=== PATIENT | female | born 1995 | race Caucasian/White ===

== ENCOUNTER 2017-07-18 07:00 | Inpatient (IN) | payer OTHER ==
[~2017-07-18] VITALS: Ht 162.6 cm; Wt 78.0 kg
[2017-07-18] VITALS (60 sets, daily range): BP systolic 104–134; BP diastolic 56–84
[2017-07-18] MEDS ORDERED: D5 LR IV SOLUTION 1,000 ML IV ONE (07:36)
[2017-07-18] MEDS: D5 LR IV SOLUTION 1,000 ML IV SCH ×3 (07:36→21:08)
[2017-07-18] MEDS ORDERED: OXYTOCIN/NORMAL SALINE 500 ML IV SCH (07:50)
--- NOTE | 2017-07-18 08:01 | History & Physical ---
History and Physical Date Seen by Provider: July 18, 2017 Time Seen by Provider: 07:59 This patient is a 21-year-old 1 with a due date of 3017 putting her now at 40-2/7 weeks gestation. She was admitted for labor induction. She does state that she been started to have contractions last evening and occurring about every 6-8 minutes and was some varying intensity. Patient denies rupture membranes or bleeding. GBS culture was negative. She said no problems with his to date. Allergies are to shellfish which causes anaphylaxis Medications are vitamins Past medical history, past surgical history, obstetric history, family history, social histories are per the antepartum record HEENT exam is normal Neck is supple no lymphadenopathy no thyromegaly Abdomen is gravid soft nontender nondistended Extremities show no clubbing cyanosis. There is no Homans sign. Pelvic exam was performed in clinic showed a cervix that was thick and with just a dimple. The presenting part was the vertex at the -2 station was ballotable Assessment and plan 40-2/7 weeks gestation admitted now for induction of labor. Induction and cervical ripening mechanisms have been fully discussed with this patient plan is for induction with Pitocin versus use of a cervical ripening agent. Postdates admission for induction of labor 40-2/7 weeks' gestation Allergies and Home Medications Allergies Coded Allergies: shellfish derived (Verified Allergy, Severe, hives, 07/18/17) Patient Home Medication List Home Medication List Reviewed: Yes RITA MUNOZ MD July 18, 2017 8:01 am
--- NOTE | 2017-07-18 08:02 | OB Bishop Score ---
Gaytan Score 4 RITA MUNOZ MD July 18, 2017 8:02 am
[2017-07-18 08:37] LABS: BILIRUBIN,URINE NEGATIVE (NEGATIVE); CLARITY,URINE CLEAR; COLOR,URINE YELLOW; GLUCOSE, URINE (UA) NEGATIVE (NEGATIVE); KETONES,URINE NEGATIVE (NEGATIVE); LEUKOCYTE ESTERASE ,URINE NEGATIVE (NEGATIVE); NITRITE,URINE NEGATIVE (NEGATIVE); PH,URINE 8 (5-9); PROTEIN,URINE NEGATIVE (NEGATIVE); UROBILINOGEN,URINE NORMAL (NORMAL)
[2017-07-18 08:56] LABS: BACTERIA,URINE MODERATE /HPF; WBC,URINE 0-2 /HPF
[2017-07-18 08:59] LABS: BASOPHILS % (AUTO) 0 % (0-10); EOSINOPHILS # (AUTO) 0.1 10^3/uL (0.0-0.3); EOSINOPHILS % (AUTO) 1 % (0-10); HEMATOCRIT 36 % (35-52); HEMOGLOBIN 12.2 G/DL (11.5-16.0); LYMPHOCYTES # (AUTO) 2.4 X 10^3 (1.0-4.0); LYMPHOCYTES % (AUTO) 28 % (12-44); MEAN CORPUSCULAR HEMOGLOBIN 32 PG (25-34); MEAN CORPUSCULAR HGB CONC 34 G/DL (32-36); MEAN CORPUSCULAR VOLUME 92 FL (80-99); MEAN PLATELET VOLUME 11.2 FL (7.4-10.4); MONOCYTES # (AUTO) 0.7 X 10^3 (0.0-1.0); MONOCYTES % (AUTO) 8 % (0-12); NEUTROPHILS # (AUTO) 5.4 X 10^3 (1.8-7.8); NEUTROPHILS % (AUTO) 63 % (42-75); PLATELET COUNT 248 10^3/uL (130-400); RED BLOOD COUNT 3.87 10^6/uL (4.35-5.85); WHITE BLOOD COUNT 8.6 10^3/uL (4.3-11.0)
[2017-07-18] MEDS ORDERED: CATHETER FLUSH 10 ML SYR IV SCH (14:00)
[2017-07-18] MEDS ORDERED: SUFENTA 0.6MCG/ML BUPIVA 0.125 100 ML ONE (18:45)
[2017-07-18] MEDS ORDERED: LACTATED RINGERS 1,000 ML IV ONE ×2 (18:45→22:38)
[2017-07-18] MEDS ORDERED: fentaNYL INJECTION 100 MCG/2 ML AMP ONE (18:57)
[2017-07-18] MEDS ORDERED: BUPIVACAINE 0.25% 30 ML (SENSORCAINE) VIAL ONE (18:57)
[2017-07-18] MEDS ORDERED: LIDOCAINE PF 2% 5 ML (XYLOCAINE) VIAL ONE (18:57)
[2017-07-18] MEDS ORDERED: LACTATED RINGERS 1,000 ML IV SCH (19:37)
[2017-07-18] MEDS ORDERED: NALOXONE 0.4 MG/ML 1 ML (NARCAN) VIAL IV PRN (19:45)
[2017-07-18] MEDS ORDERED: EPIDURAL (SUFENTA 0.6MCG/ML BUPIVA 0.125%) 100 ML BAG EPI PRN (19:45)
[2017-07-18] MEDS ORDERED: diphenhydrAMINE 50 MG/ML INJ (BENADRYL) IV PRN (19:45)
[2017-07-18] MEDS ORDERED: ONDANSETRON 4 MG/2 ML (SDV) Z0FRAN IV PRN (19:45)
[2017-07-18] MEDS ORDERED: ACETAMINOPHEN 325 MG TABLET/CAPLET (TYLENOL) ONE (21:13)
[2017-07-18] MEDS ORDERED: ACETAMINOPHEN 500 MG TAB (TYLENOL) PO ONE (22:15)
[2017-07-18] MEDS ORDERED: EPIDURAL (SUFENTA 0.6MCG/ML BUPIVA 0.125%) 100 ML BAG EPI SCH (22:45)
[2017-07-19] VITALS (20 sets, daily range): BP systolic 101–150; BP diastolic 59–87
[2017-07-19] MEDS ORDERED: OXYTOCIN/NORMAL SALINE 500 ML IV SCH (03:18)
[2017-07-19] MEDS ORDERED: BENZOCAINE/MENTHOL (DERMOPLAST) 56 ML CAN TP PRN (03:30)
[2017-07-19] MEDS ORDERED: MEASLES,MUMPS,RUBELLA 1 EA INJ SQ ONE (03:30)
[2017-07-19] MEDS ORDERED: WITCH HAZEL(TUCKS) 40 EA JAR TOP PRN (03:30)
[2017-07-19] MEDS ORDERED: TETANUS,DIPTH,PERTUSS P/F (BOOSTRIX) 0.5 ML VIAL IM ONE (03:30)
[2017-07-19] MEDS ORDERED: oxyCODONE/APAP 5/325MG (PERCOCET 5) TABLET PO PRN (03:30)
[2017-07-19] MEDS ORDERED: WITCH HAZEL(TUCKS) 40 EA JAR ONE (04:09)
[2017-07-19] MEDS ORDERED: IBUPROFEN 800 MG (MOTRIN) TAB PO ONE ×4 (04:09→22:13)
[2017-07-19] MEDS: IBUPROFEN 800 MG (MOTRIN) TAB PO SCH ×4 (04:19→22:20)
--- NOTE | 2017-07-19 07:24 | OPERATIVE REPORT ---
DATE OF SERVICE: 07/19/2017 DELIVERY NOTE The patient delivered by term spontaneous vaginal delivery a viable male with Apgars of 8 and 9 at 1 and 5 minutes respectively. time of 0204. Weight is 7 pounds and 11 ounces. Cord blood pH was 7.22. The patient delivered over a midline episiotomy under epidural and local analgesia. The episiotomy was performed at the patient's request. When the perineum was stretched as far as possible, the hymenal ring was starting to tear and the patient could not push the baby any further. The episiotomy was performed. The delivery was accomplished fairly promptly. There was a single nuchal cord that was easily released. The infant was bulb suctioned on delivery of the head and again on completion of delivery. The umbilical cord was doubly clamped when pulseless. Father cut the cord, the baby was passed to mom's abdomen. The infant had spontaneous cry, moved all extremities, had excellent tone and reflexes and was quickly pinked with a vigorous cry. The placenta delivered spontaneously Real. It was normal with a 3-vessel cord. Cord blood had been obtained after delivery of the before delivery of the placenta. The cervix, vagina, rectum and perineum were examined and found intact, except for the midline episiotomy, which was repaired with a single suture of 3-0 Vicryl in the usual manner to good hemostasis and to good tissue reapproximation. The patient tolerated the delivery and the repair well and remained in the LDR for recovery. The baby remained with the mom. Job ID: [id number] DocumentID: [id number] Dictated Date: 07/19/2017 02:29:54 Range Mechanic Date: 07/19/2017 07:23:23 Dictated By: RITA MUNOZ MD [facility]
--- NOTE | 2017-07-19 08:00 | Progress Note-Standard ---
Standard Progress Note Progress Notes/Assess & Plan Date Seen by Provider: July 19, 2017 Time Seen by Provider: 07:59 Progress/Assessment & Plan This patient is without complaint. She is ambulating, voiding, tolerating oral intake well has good pain control. Vital Signs Date Time Temp Pulse Resp B/P (MAP) Pulse Ox O2 Delivery O2 Flow Rate FiO2 07/19/17 05:25 97.4 74 18 106/63 (77) 97 Room Air 07/19/17 03:30 98.2 86 18 112/65 (81) Room Air 07/19/17 03:15 97.9 82 18 113/67 (82) Room Air 07/19/17 03:00 98.1 80 18 127/60 (82) Room Air 07/19/17 02:45 98.7 81 18 150/60 (90) Room Air 07/19/17 02:30 98.9 96 18 113/68 (83) Room Air 07/19/17 02:20 103 18 107/59 (75) Room Air 07/19/17 02:04 120 18 117/71 (86) Room Air 07/19/17 02:00 93 18 121/81 (94) 98 Room Air 07/19/17 01:45 98.1 54 18 138/87 (104) 98 Room Air 07/19/17 01:30 77 18 110/68 (82) 98 Room Air 07/19/17 01:15 67 18 113/70 (84) 97 Room Air 07/19/17 01:00 72 18 115/69 (84) 97 Room Air 07/19/17 00:45 98.0 88 18 124/64 (84) 98 Room Air 07/19/17 00:30 76 18 115/79 (91) 98 Room Air 07/19/17 00:15 68 18 110/72 (85) 99 Room Air 07/19/17 00:00 71 18 115/81 (92) 99 Room Air 07/18/17 23:45 61 18 111/67 (82) 99 Room Air 07/18/17 23:30 62 18 115/71 (86) 98 Room Air 07/18/17 23:15 59 18 109/62 (78) 98 Room Air 07/18/17 23:00 97.6 77 18 113/76 (88) 99 Room Air 07/18/17 22:45 76 18 112/77 (89) 97 Room Air 07/18/17 22:30 75 18 109/69 (82) 98 Room Air 07/18/17 22:15 77 18 111/71 (84) 98 Room Air 07/18/17 22:00 77 18 111/71 (84) Room Air 07/18/17 21:45 73 18 110/70 (83) Room Air 07/18/17 21:30 71 18 121/73 (89) Room Air 07/18/17 21:15 97.7 94 18 104/73 (83) Room Air 07/18/17 21:00 73 18 121/75 (90) Room Air 07/18/17 20:45 76 18 119/79 (92) Room Air 07/18/17 20:30 77 18 124/73 (90) Room Air 07/18/17 20:15 82 18 119/66 (83) Room Air 07/18/17 20:10 100 18 134/63 (86) Room Air 07/18/17 20:05 103 18 122/78 (93) 98 Room Air 07/18/17 20:00 Room Air 07/18/17 19:45 78 18 114/65 (81) 98 Room Air 07/18/17 19:43 88 18 115/58 (77) 98 Room Air 07/18/17 19:39 104 18 120/62 (81) 99 Room Air 07/18/17 19:37 82 18 128/64 (85) 99 Room Air 07/18/17 19:33 88 18 116/67 (83) 99 Room Air 07/18/17 19:30 89 18 124/65 (84) 99 Room Air 07/18/17 19:27 84 18 119/62 (81) 99 Room Air 07/18/17 19:15 98.4 76 18 130/65 (86) 99 Room Air 07/18/17 19:00 18 Room Air 07/18/17 18:50 18 122/76 (91) Room Air 07/18/17 18:30 18 Room Air 07/18/17 18:00 18 Room Air 07/18/17 17:10 75 18 129/56 (80) Room Air 07/18/17 16:55 85 18 114/76 (89) Room Air 18 16:40 75 18 113/69 (84) Room Air 07/18/17 16:25 78 18 117/70 (86) Room Air 07/18/17 16:10 70 18 113/69 (84) Room Air 07/18/17 16:00 97.8 07/18/17 15:55 75 18 109/69 (82) Room Air 07/18/17 15:40 72 18 118/66 (83) Room Air 07/18/17 15:25 76 18 113/63 (80) Room Air 07/18/17 15:10 18 Room Air 07/18/17 14:55 78 18 120/77 (91) Room Air 07/18/17 14:40 72 18 120/77 (91) Room Air 07/18/17 14:25 75 18 129/75 (93) Room Air 07/18/17 14:10 72 18 132/78 (96) Room Air 07/18/17 13:55 68 18 120/79 (93) Room Air 07/18/17 13:40 77 18 120/79 (93) Room Air 07/18/17 13:25 75 18 122/81 (95) Room Air 07/18/17 13:10 69 18 114/74 (87) Room Air 07/18/17 12:55 18 Room Air 07/18/17 12:40 89 18 122/71 (88) Room Air 07/18/17 12:20 78 18 122/71 (88) Room Air 07/18/17 12:05 78 18 122/71 (88) Room Air 07/18/17 11:55 70 18 121/71 (88) Room Air 07/18/17 11:40 76 18 129/75 (93) Room Air 07/18/17 11:25 74 18 125/73 (90) Room Air 07/18/17 11:10 82 18 123/83 (96) Room Air 07/18/17 10:55 74 18 122/72 (89) Room Air 07/18/17 10:46 97.9 07/18/17 10:40 81 18 111/73 (86) Room Air 07/18/17 10:25 75 18 105/60 (75) Room Air 07/18/17 10:10 68 18 106/61 (76) Room Air 07/18/17 09:55 78 18 115/73 (87) Room Air 07/18/17 09:40 18 Room Air 07/18/17 09:25 75 18 116/74 (88) Room Air 07/18/17 09:10 73 18 111/78 (89) Room Air 07/18/17 08:55 73 18 110/77 (88) Room Air 07/18/17 08:40 72 18 117/78 (91) Room Air 07/18/17 08:22 70 18 121/79 (93) Room Air I & O 07/19/17 07:00 Intake Total 1000 ml Balance 1000 ml Vital signs are stable. Patient is afebrile. Fundus is firm below the umbilicus and nontender. Extreme show no clubbing cyanosis. There is no Homans sign. Assessment and plan from approximately 2 a.m. doing well. Plan is for routine convalescence care RITA MUNOZ MD July 19, 2017 8:00 am
[2017-07-19] MEDS ORDERED: IBUP-1780 PO (08:01)
[2017-07-19] MEDS ORDERED: OXYC-471 PO (08:01)
[2017-07-19] MEDS ORDERED: DOCU-143 PO (08:01)
--- NOTE | 2017-07-19 08:03 | Discharge Instructions ---
Discharge Instructions Discharge Medications New, Converted or Re-Newed RX: RX on Chart Patient Instructions Patient Instructions: As directed Return to The Hospital For: as directed Activity & Diet Discharge Diet: No Restrictions Activity as Tolerated: No Orders-Post D/C & Referrals Follow Up Appt: Call to make follow up appt. for patient in 4 weeks. Activity Per routine post vaginal delivery instructions. Diet as tolerated Patient may shower or tub bathe as desired. RITA MUNOZ MD July 19, 2017 8:03 am
[2017-07-19] MEDS ORDERED: KETOROLAC 30 MG/ML VIAL IV SCH (08:15)
[2017-07-19] MEDS: DOCUSATE SODIUM 100 MG (COLACE) CAP PO SCH ×2 (09:38→22:20)
--- NOTE | 2017-07-19 12:51 | Anesthesia-Regional Post-Op ---
Regional Patient Condition Mental Status: Alert, Oriented x3 Circulation: Same as Pre-Op Headache: Absent Sensation: Decreased Motor Block: Absent Post Op Complications Complications Pt reported to PEGGY Cheyenne that her L thigh is numb but that it was numb when and nothing new Follow Up Care/Instructions Patient Instructions None needed. Anesthesia/Patient Condition Patient is doing well, no complaints, stable vital signs, no apparent adverse anesthesia problems. No complications reported per nursing. D/C home per [facility] Criteria: Yes JOSE GARCIA CRNA July 19, 2017 12:51
[2017-07-19] MEDS: oxyCODONE/APAP 10/325MG (PERCOCET 10) TABLET PO PRN ×2 (18:04→22:25)
--- NOTE | 2017-07-19 20:44 | Diagnostic Imaging Report ---
EXAM: Bilateral lower extremity venous Doppler ultrasound. DATE: 07/19/2017. INDICATION: 21-year-old female, bilateral leg pain. Evaluation for DVT. Leg swelling. COMPARISON: None. FINDINGS: The left common femoral vein, left superficial femoral vein and left popliteal vein are all compressible with normal flow and response to augmentation. The visualized portions of the left deep femoral vein are patent. The left posterior tibial and peroneal veins are patent. The right common femoral vein, right superficial femoral vein and right popliteal vein are all compressible with flow and response to augmentation. The visualized portions of the right deep femoral vein are patent. The right posterior tibial and peroneal veins are patent. IMPRESSION: Negative for right or left lower extremity deep venous thrombosis. Dictated by: Dictated on workstation # [id number]
[2017-07-20 02:45] VITALS: BP 110/68
[2017-07-20] MEDS: IBUPROFEN 800 MG (MOTRIN) TAB PO SCH ×2 (04:17→10:29)
--- NOTE | 2017-07-20 07:53 | Progress Note-Standard ---
Standard Progress Note Progress Notes/Assess & Plan Date Seen by Provider: July 20, 2017 Time Seen by Provider: 07:52 Progress/Assessment & Plan This patient is without complaint. She is ambulating, voiding, tolerating oral intake well has good pain control. Vital Signs Date Time Temp Pulse Resp B/P (MAP) Pulse Ox O2 Delivery O2 Flow Rate FiO2 07/19/17 05:25 97.4 74 18 106/63 (77) 97 Room Air 07/19/17 03:30 98.2 86 18 112/65 (81) Room Air 07/19/17 03:15 97.9 82 18 113/67 (82) Room Air 07/19/17 03:00 98.1 80 18 127/60 (82) Room Air 07/19/17 02:45 98.7 81 18 150/60 (90) Room Air 07/19/17 02:30 98.9 96 18 113/68 (83) Room Air 07/19/17 02:20 103 18 107/59 (75) Room Air 07/19/17 02:04 120 18 117/71 (86) Room Air 07/19/17 02:00 93 18 121/81 (94) 98 Room Air 07/19/17 01:45 98.1 54 18 138/87 (104) 98 Room Air 07/19/17 01:30 77 18 110/68 (82) 98 Room Air 07/19/17 01:15 67 18 113/70 (84) 97 Room Air 07/19/17 01:00 72 18 115/69 (84) 97 Room Air 07/19/17 00:45 98.0 88 18 124/64 (84) 98 Room Air 07/19/17 00:30 76 18 115/79 (91) 98 Room Air 07/19/17 00:15 68 18 110/72 (85) 99 Room Air 07/19/17 00:00 71 18 115/81 (92) 99 Room Air 07/18/17 23:45 61 18 111/67 (82) 99 Room Air 07/18/17 23:30 62 18 115/71 (86) 98 Room Air 07/18/17 23:15 59 18 109/62 (78) 98 Room Air 07/18/17 23:00 97.6 77 18 113/76 (88) 99 Room Air 07/18/17 22:45 76 18 112/77 (89) 97 Room Air 07/18/17 22:30 75 18 109/69 (82) 98 Room Air 07/18/17 22:15 77 18 111/71 (84) 98 Room Air 07/18/17 22:00 77 18 111/71 (84) Room Air 07/18/17 21:45 73 18 110/70 (83) Room Air 07/18/17 21:30 71 18 121/73 (89) Room Air 07/18/17 21:15 97.7 94 18 104/73 (83) Room Air 07/18/17 21:00 73 18 121/75 (90) Room Air 07/18/17 20:45 76 18 119/79 (92) Room Air 07/18/17 20:30 77 18 124/73 (90) Room Air 07/18/17 20:15 82 18 119/66 (83) Room Air 07/18/17 20:10 100 18 134/63 (86) Room Air 07/18/17 20:05 103 18 122/78 (93) 98 Room Air 07/18/17 20:00 Room Air 07/18/17 19:45 78 18 114/65 (81) 98 Room Air 07/18/17 19:43 88 18 115/58 (77) 98 Room Air 07/18/17 19:39 104 18 120/62 (81) 99 Room Air 07/18/17 19:37 82 18 128/64 (85) 99 Room Air 07/18/17 19:33 88 18 116/67 (83) 99 Room Air 07/18/17 19:30 89 18 124/65 (84) 99 Room Air 07/18/17 19:27 84 18 119/62 (81) 99 Room Air 07/18/17 19:15 98.4 76 18 130/65 (86) 99 Room Air 07/18/17 19:00 18 Room Air 07/18/17 18:50 18 122/76 (91) Room Air 07/18/17 18:30 18 Room Air 07/18/17 18:00 18 Room Air 07/18/17 17:10 75 18 129/56 (80) Room Air 07/18/17 16:55 85 18 114/76 (89) Room Air 18 16:40 75 18 113/69 (84) Room Air 07/18/17 16:25 78 18 117/70 (86) Room Air 07/18/17 16:10 70 18 113/69 (84) Room Air 07/18/17 16:00 97.8 07/18/17 15:55 75 18 109/69 (82) Room Air 07/18/17 15:40 72 18 118/66 (83) Room Air 07/18/17 15:25 76 18 113/63 (80) Room Air 07/18/17 15:10 18 Room Air 07/18/17 14:55 78 18 120/77 (91) Room Air 07/18/17 14:40 72 18 120/77 (91) Room Air 07/18/17 14:25 75 18 129/75 (93) Room Air 07/18/17 14:10 72 18 132/78 (96) Room Air 07/18/17 13:55 68 18 120/79 (93) Room Air 07/18/17 13:40 77 18 120/79 (93) Room Air 07/18/17 13:25 75 18 122/81 (95) Room Air 07/18/17 13:10 69 18 114/74 (87) Room Air 07/18/17 12:55 18 Room Air 07/18/17 12:40 89 18 122/71 (88) Room Air 07/18/17 12:20 78 18 122/71 (88) Room Air 07/18/17 12:05 78 18 122/71 (88) Room Air 07/18/17 11:55 70 18 121/71 (88) Room Air 07/18/17 11:40 76 18 129/75 (93) Room Air 07/18/17 11:25 74 18 125/73 (90) Room Air 07/18/17 11:10 82 18 123/83 (96) Room Air 07/18/17 10:55 74 18 122/72 (89) Room Air 07/18/17 10:46 97.9 07/18/17 10:40 81 18 111/73 (86) Room Air 07/18/17 10:25 75 18 105/60 (75) Room Air 07/18/17 10:10 68 18 106/61 (76) Room Air 07/18/17 09:55 78 18 115/73 (87) Room Air 07/18/17 09:40 18 Room Air 07/18/17 09:25 75 18 116/74 (88) Room Air 07/18/17 09:10 73 18 111/78 (89) Room Air 07/18/17 08:55 73 18 110/77 (88) Room Air 07/18/17 08:40 72 18 117/78 (91) Room Air 07/18/17 08:22 70 18 121/79 (93) Room Air I & O 07/19/17 07:00 Intake Total 1000 ml Balance 1000 ml Vital signs are stable. Patient is afebrile. Fundus is firm below the umbilicus and nontender. Extreme show no clubbing cyanosis. There is no Homans sign. Assessment and plan from approximately 2 a.m. doing well. Plan is for routine convalescence care July 20, 2017 Patient without complaint except muscle soreness in her arms her legs particularly left leg. DVT was ruled out. Patient is ambulating, tolerating oral intake well has adequate pain control denies headache, denies nausea vomiting, denies shortness of breath. Patient feels ready for discharge home. Vital Signs Date Time Temp Pulse Resp B/P (MAP) Pulse Ox O2 Delivery O2 Flow Rate FiO2 07/20/17 02:45 96.4 92 18 110/68 (82) 98 Room Air 07/19/17 22:30 96.6 79 18 113/63 (80) 98 Room Air 07/19/17 15:00 96.5 84 18 101/67 (78) 99 Room Air 07/19/17 09:36 97.9 80 18 102/64 (77) Room Air I & O 07/20/17 07:00 Intake Total 500 ml Balance 500 ml Vital signs are stable. Patient is afebrile. Fundus is firm below the umbilicus and nontender. Streaming show no clubbing cyanosis. There is no Homans sign. Assessment and plan day number 2 status post term spontaneous vaginal delivery doing well. Plan is for discharge home with follow-up in clinic Final Diagnosis Term spontaneous vaginal delivery RITA MUNOZ MD July 20, 2017 7:53 am
[2017-07-20] MEDS ORDERED: IBUPROFEN 800 MG (MOTRIN) TAB PO SCH (08:15)
[2017-07-20 10:28] VITALS: BP 110/62
[2017-07-20] MEDS: DOCUSATE SODIUM 100 MG (COLACE) CAP PO SCH (10:29)
[2017-07-20] MEDS: oxyCODONE/APAP 10/325MG (PERCOCET 10) TABLET PO PRN ×2 (10:30→14:15)
[2017-07-20] MEDS ORDERED: TETANUS,DIPTH,PERTUSS P/F (BOOSTRIX) 0.5 ML VIAL IM ONE (12:45)
== END 2017-07-20 14:15 | disposition home or self-care (01) | DRG 774 ==
LOC: LDRP 07:00
PROVIDERS: ADMIT Obstetrics & Gynecology; ATTEND Obstetrics & Gynecology
PROC: 10E0XZZ Delivery of Products of Conception, External Approach (ICD-10-PCS; principal; 2017-07-19)
PROC: 0W8NXZZ Division of Female Perineum, External Approach (ICD-10-PCS; 2017-07-19)
DX: O48.0 Post-term pregnancy (principal); O69.81X0 Labor and delivery complicated by cord around neck, without compression, not applicable or unspecified; O90.89 Other complications of the puerperium, not elsewhere classified; M79.1 Myalgia; M79.605 Pain in left leg; Z3A.40 40 weeks gestation of pregnancy; Z37.0 Single live birth; Z23 Encounter for immunization
CPT/HCPCS: 36415; 81000; 85025; 86850; 86900; 86901; 88307; 90715; 93970

== ENCOUNTER → 2019-09-10 | Outpatient (CLI) | payer OTHER ==
[~2019-09-10] MED LIST: DOCU-143 PO; IBUP-1780 PO; OXYC-471 PO
== END ==
LOC: LABNPT 08:31
PROVIDERS: ATTEND Obstetrics & Gynecology
DX: O08.5 Metabolic disorders following an ectopic and molar pregnancy (principal)
CPT/HCPCS: 84702

== ENCOUNTER 2020-03-29 11:53 | Outpatient (CLI) | payer MEDICAID, OTHER ==
[~2020-03-29] VITALS: Ht 162.5 cm; Wt 77.0 kg
--- NOTE | 2020-03-29 11:50 | NUR ---
ANANTHSENA Buitrago presented to unit via from home, accompanied by self, with c/o Abdominal pain. SENA WADSWORTH weighed, gowned, voided, and to bed. EFHM and TOCO applied, VS taken. SENA WADSWORTH oriented to bed controls, call light, TV, heat, and A/C controls.
[2020-03-29 12:00] VITALS: BP 120/75
[2020-03-29] MEDS ORDERED: D5 LR IV SOLUTION 1,000 ML IV ONE (12:42)
[2020-03-29] MEDS ORDERED: D5 LR IV SOLUTION 1,000 ML IV SCH (12:45)
[2020-03-29 12:47] LABS: BILIRUBIN,URINE 1+ (NEGATIVE); CLARITY,URINE CLOUDY; COLOR,URINE YELLOW; GLUCOSE, URINE (UA) NEGATIVE (NEGATIVE); KETONES,URINE TRACE (NEGATIVE); LEUKOCYTE ESTERASE ,URINE TRACE (NEGATIVE); NITRITE,URINE NEGATIVE (NEGATIVE); PH,URINE 7.5 (5-9); PROTEIN,URINE 2+ (NEGATIVE)
[2020-03-29 13:01] LABS: BACTERIA,URINE LARGE /HPF; RBC,URINE RARE /HPF; SQUAMOUS EPITHELIAL CELL,UR 25-50 /HPF
[2020-03-29 13:34] LABS: BASOPHILS % (AUTO) 0 % (0-10); EOSINOPHILS % (AUTO) 0 % (0-10); HEMATOCRIT 31 % (35-52); HEMOGLOBIN 9.9 g/dL (11.5-16.0); LYMPHOCYTES # (AUTO) 1.8 10^3/uL (1.0-4.0); LYMPHOCYTES % (AUTO) 19 % (12-44); MEAN CORPUSCULAR HEMOGLOBIN 27 pg (25-34); MEAN CORPUSCULAR HGB CONC 32 g/dL (32-36); MEAN CORPUSCULAR VOLUME 83 fL (80-99); MEAN PLATELET VOLUME 10.5 fL (9.0-12.2); MONOCYTES # (AUTO) 0.3 10^3/uL (0.0-1.0); MONOCYTES % (AUTO) 3 % (0-12); NEUTROPHILS # (AUTO) 7.3 10^3/uL (1.8-7.8); NEUTROPHILS % (AUTO) 77 % (42-75); PLATELET COUNT 303 10^3/uL (130-400); WHITE BLOOD COUNT 9.4 10^3/uL (4.3-11.0)
[2020-03-29 13:50] VITALS: BP 109/65
[2020-03-29 13:52] LABS: ALANINE AMINOTRANSFERASE 12 U/L (0-55); ALBUMIN 3.3 GM/DL (3.2-4.5); ALKALINE PHOSPHATASE 203 U/L (40-136); BILIRUBIN,TOTAL 0.3 MG/DL (0.1-1.0); BUN/CREATININE RATIO 10; CALCIUM 8.6 MG/DL (8.5-10.1); CARBON DIOXIDE 19 MMOL/L (21-32); CHLORIDE 109 MMOL/L (98-107); CREATININE SERUM 0.67 MG/DL (0.60-1.30); GFR ESTIMATED > 60; GLUCOSE 119 MG/DL (70-105); POTASSIUM 3.5 MMOL/L (3.6-5.0); SODIUM 137 MMOL/L (135-145); TOTAL PROTEIN 6.8 GM/DL (6.4-8.2); URIC ACID 4.8 MG/DL (2.6-7.2)
[2020-03-29] MEDS ORDERED: PNV11TAB5 PO (15:53)
--- NOTE | 2020-03-29 16:05 | NUR ---
Discharge instructions given to pt. Pt verbalizes understanding. Pt informed to continue attending their visits, pt verbalizes understanding. IV removed. Pt to change prior to leaving unit.
--- NOTE | 2020-03-29 16:15 | NUR ---
Pt discharged from unit in stable condition via ambulatory.
--- NOTE | 2020-03-31 09:13 | Physician Query-Final Dx ---
DEEPTHI CHADWICK 03/31/20 0913: Final Diagnosis Give Final Diagnosis Please give Final Diagnosis RITA MUNOZ MD 03/31/20 1527: Final Diagnosis Give Final Diagnosis 37 weeks gestation with false labor DEEPTHI CHADWICK Mar 31, 2020 09:13 RITA MUNOZ MD Mar 31, 2020 15:27
== END 2020-03-29 16:15 | disposition home or self-care (01) ==
LOC: WSo 11:53 → LDRP 11:53 → WSo 16:15
PROVIDERS: ATTEND Obstetrics & Gynecology
DX: O26.899 Other specified pregnancy related conditions, unspecified trimester (principal); R10.9 Unspecified abdominal pain; Z3A.00 Weeks of gestation of pregnancy not specified
CPT/HCPCS: 36415; 80053; 81000; 82570; 84156; 84550; 85025; 87088

== ENCOUNTER 2020-04-02 09:19 | Inpatient (IN) | payer MEDICAID ==
[~2020-04-02] VITALS: Ht 162.6 cm; Wt 77.8 kg
[2020-04-02] VITALS (56 sets, daily range): BP systolic 102–163; BP diastolic 51–82
--- NOTE | 2020-04-02 09:15 | NUR ---
ANANTHSENA Buitrago admitted to room 3320-1, with an admitting diagnosis of induction of labor, on 04/02/[address] office via private vehicle ambulated to OB floor, accompanied by self.SENA WADSWORTH introduced to surroundings, call light, bed controls, phone, TV, temperature control, lights, meal times, smoking policy, visitor policy, side rail policy, bathrooms and showers. Patient Rights given to patient in the handbook. SENA WADSWORTH verbalizes understanding that [facility] is not responsible for the loss or damage to any personal effects or valuables that are kept in the patients posession during their hospitalization. The following Patient Care Plans were discussed with the paient: Discharge Planning, pain management, labor POC, and care. SENA WADSWORTH verbalizes understanding of Interdisciplinary Patient Education. Patient and/or family were informed about the Rapid Response Team and its purpose.
[~2020-04-02 09:19] MED LIST changes: +PNV11TAB5 PO
[2020-04-02] MEDS ORDERED: MINERAL OIL CONCENTRATE 99.9% 15 ML UDC TOP PRN (09:45)
[2020-04-02] MEDS ORDERED: OXYTOCIN PRE-MIX DRIP 500 ML IV SCH ×2 (09:45→21:15)
[2020-04-02] MEDS: D5 LR IV SOLUTION 1,000 ML IV SCH ×2 (10:05→18:00)
[2020-04-02 10:28] LABS: BASOPHILS % (AUTO) 0 % (0-10); EOSINOPHILS # (AUTO) 0.1 10^3/uL (0.0-0.3); EOSINOPHILS % (AUTO) 1 % (0-10); HEMATOCRIT 29 % (35-52); HEMOGLOBIN 8.9 g/dL (11.5-16.0); LYMPHOCYTES # (AUTO) 1.9 10^3/uL (1.0-4.0); LYMPHOCYTES % (AUTO) 25 % (12-44); MEAN CORPUSCULAR HEMOGLOBIN 26 pg (25-34); MEAN CORPUSCULAR HGB CONC 31 g/dL (32-36); MEAN CORPUSCULAR VOLUME 83 fL (80-99); MEAN PLATELET VOLUME 10.6 fL (9.0-12.2); MONOCYTES # (AUTO) 0.6 10^3/uL (0.0-1.0); MONOCYTES % (AUTO) 8 % (0-12); NEUTROPHILS # (AUTO) 4.9 10^3/uL (1.8-7.8); NEUTROPHILS % (AUTO) 65 % (42-75); PLATELET COUNT 316 10^3/uL (130-400); WHITE BLOOD COUNT 7.5 10^3/uL (4.3-11.0)
[2020-04-02 10:47] LABS: ALANINE AMINOTRANSFERASE 10 U/L (0-55); ALBUMIN 3.1 GM/DL (3.2-4.5); ALKALINE PHOSPHATASE 198 U/L (40-136); BILIRUBIN,TOTAL 0.3 MG/DL (0.1-1.0); BUN/CREATININE RATIO 10; CALCIUM 9.2 MG/DL (8.5-10.1); CARBON DIOXIDE 19 MMOL/L (21-32); CHLORIDE 110 MMOL/L (98-107); CREATININE SERUM 0.61 MG/DL (0.60-1.30); GFR ESTIMATED > 60; GLUCOSE 71 MG/DL (70-105); POTASSIUM 3.8 MMOL/L (3.6-5.0); SODIUM 138 MMOL/L (135-145)
--- NOTE | 2020-04-02 12:39 | History & Physical ---
History and Physical Date Seen by Provider: Apr 02, 2020 Time Seen by Provider: 12:35 This patient is a 24-year-old 2 para 1 white female seen in my clinic on this date. She is complaining of significant increase in pressure pain and contractions. Her REMY had decreased. And notably from prior exam although was still around 100 mm. Patient is noted significant decreased movement. She was found to be diya with regularity and was sent from my clinic to labor and delivery for management. She continues to contract. She denies rupture membranes or bleeding. She had a negative GBS culture after 35 weeks gestation. She is admitted now for labor Allergies are to shellfish Medications are vitamin Medical social and surgical history is all per the antepartum record HEENT exam is normal Neck is supple with no lymphadenopathy no thyromegaly Abdomen is gravid soft nontender nondistended Extremities show no clubbing cyanosis. There is no Homans' sign. Pelvic exam shows a cervix 1 to 2 cm dilated 50% effaced 0 station to -1 station vertex presentation very soft and flexible in the anterior Amniotomy is performed releasing a small amount of clear fluid monitor shows contractions now every 2-minute with a normal heart rate pattern/category 1 Assessment and plan term at 37+ weeks gestation admitted in early labor. We anticipate a vaginal delivery she has been augmented with Pitocin and would be allowed an epidural if she decides Patient is mildly anemic and we will address that after her delivery Term in early labor Allergies and Home Medications Allergies Coded Allergies: shellfish derived (Verified Allergy, Severe, hives, 07/18/17) Home Medications [id number]/FA/Omega3/Dha/Fish Oil 1 Each Tab.chew, 1 EACH PO DAILY, (Reported) Patient Home Medication List Home Medication List Reviewed: Yes RITA MUNOZ MD Apr 02, 2020 12:39
[2020-04-02] MEDS ORDERED: OXYC1TAB87 PO (12:44)
[2020-04-02] MEDS ORDERED: IBUP-1780 PO (12:44)
[2020-04-02] MEDS ORDERED: DOCU-143 PO (12:44)
--- NOTE | 2020-04-02 12:45 | Discharge Inst-Surgical ---
Discharge Inst-Surgical Depart Medication/Instructions New, Converted or Re-Newed RX: RX on Chart Consults/Follow Up Patient Instructions: As directed Orders & Referrals Follow Up Appt: Call to make follow up appt. for patient in 4 weeks. Activity Per routine post vaginal delivery instructions. Please call in RX to patient pharmacy. Diet as tolerated Patient may shower or tub bathe as desired. Activity Activity as Tolerated: No Diet Discharge Diet: No Restrictions RITA MUNOZ MD Apr 02, 2020 12:45
[2020-04-02] MEDS: CATHETER FLUSH 10 ML SYR IV SCH ×2 (14:00→22:00)
[2020-04-02] MEDS ORDERED: fentaNYL 2 mcg/ml BUPIVA 0.125 100 ML ONE (16:59)
[2020-04-02] MEDS ORDERED: fentaNYL INJECTION 100 MCG/2 ML AMP ONE (17:47)
[2020-04-02] MEDS ORDERED: BUPIVACAINE 0.25% 30 ML (SENSORCAINE) VIAL ONE (17:47)
[2020-04-02] MEDS ORDERED: fentaNYL 2 mcg/ml BUPIVA 0.125 100 ML IV SCH (18:00)
[2020-04-02] MEDS ORDERED: CATHETER FLUSH 10 ML SYR IV PRN (18:00)
[2020-04-02] MEDS ORDERED: NALOXONE 0.4 MG/ML 1 ML (NARCAN) VIAL IV PRN (18:00)
[2020-04-02] MEDS ORDERED: LACTATED RINGERS 1,000 ML IV ONE (18:00)
--- NOTE | 2020-04-02 19:40 | NUR ---
dr garcia notified of patient most recent cervical exams, pitocin infusion, current strip with decelerations. requested nurses to continue to increase pitocin infusion with current strip.
--- NOTE | 2020-04-02 19:44 | NUR ---
This RN discussing patient care, status, and monitoring strip with Dr. Bardales. Orders received to continue to up pitocin every 15min until cervical change.
[2020-04-02] MEDS ORDERED: LIDOCAINE/EPI 2% 1:200,00 (XYLOCAINE) 10 ML VIAL ONE (20:02)
[2020-04-02] MEDS ORDERED: KETOROLAC 30 MG/ML VIAL ONE (21:07)
[2020-04-02] MEDS ORDERED: BENZOCAINE/MENTHOL (DERMOPLAST) 60 ML CAN TP ONE (21:08)
[2020-04-02] MEDS ORDERED: DOCUSATE SODIUM 100 MG (COLACE) CAP PO ONE (21:08)
[2020-04-02] MEDS ORDERED: MEASLES,MUMPS,RUBELLA 1 EA INJ SC ONE (21:15)
[2020-04-02] MEDS ORDERED: ONDANSETRON 4 MG/2 ML (SDV) Z0FRAN IVP PRN (21:15)
[2020-04-02] MEDS ORDERED: TETANUS,DIPTH,PERTUSS P/F (BOOSTRIX) 0.5 ML VIAL IM ONE (21:15)
[2020-04-02] MEDS ORDERED: BENZOCAINE/MENTHOL (DERMOPLAST) 60 ML CAN TP PRN (21:15)
[2020-04-02] MEDS: DOCUSATE SODIUM 100 MG (COLACE) CAP PO SCH (21:22)
[2020-04-02] MEDS: KETOROLAC 30 MG/ML VIAL IVP SCH (21:22)
--- NOTE | 2020-04-02 23:35 | NUR ---
Patient ambulated to bathroom with standby assist, without difficulty. Positive void noted. Light rubra bleeding, no clots.
--- NOTE | 2020-04-02 23:45 | NUR ---
Patient transferred to PP room 311 via wheelchair, accompanied by staff, , and in crib. Patient oriented to room, call light, bed controls, thermostat, and dietary menu. PP folder given and explained, patient verbalized understanding.
--- NOTE | 2020-04-03 00:40 | OPERATIVE REPORT ---
DATE OF SERVICE: 04/02/2020 DELIVERY NOTE The patient delivered by term spontaneous vaginal delivery of a viable male infant with Apgars of 8 and 9 at 1 and 5 minutes respectively, weight of 7 pounds 12 ounces. time of 2035 and a cord blood pH that is pending. The infant delivered over a second-degree perineal laceration under epidural analgesia. The was bulb suctioned on delivery of the head and again on completion of delivery. Umbilical cord was doubly clamped, father cut the cord, the baby was passed to mom's abdomen. Cord bloods were obtained. The placenta delivered promptly spontaneously Real. It was a battledore placenta with a 3-vessel cord. The cervix, vagina, rectum, and perineum were examined and found intact, except for the second-degree perineal laceration that was repaired with a single suture of 3-0 Vicryl Rapide in the usual manner to good hemostasis and good reapproximation. The patient tolerated the delivery and the repair well and remained in the LDR for recovery. The baby remained with the mom. Sponge and needle counts were correct. Estimated blood loss was around 250 mL. Job ID: [id number] DocumentID: [id number] Dictated Date: 04/02/2020 21:01:43 Bindery Machine Feeder Offbearer Date: 04/03/2020 00:39:24 Dictated By: RITA MUNOZ MD
[2020-04-03 03:05] VITALS: BP 105/55
[2020-04-03] MEDS: KETOROLAC 30 MG/ML VIAL IVP SCH ×2 (03:12→08:47)
[2020-04-03] MEDS: IBUPROFEN 800 MG (MOTRIN) TAB PO SCH ×4 (05:50→21:17)
[2020-04-03] MEDS: CATHETER FLUSH 10 ML SYR IV SCH (05:52)
[2020-04-03] MEDS ORDERED: FERROUS SULF 325 MG (IRON) TAB PO SCH (07:00)
[2020-04-03] MEDS: DOCUSATE SODIUM 100 MG (COLACE) CAP PO SCH (08:39)
[2020-04-03 08:45] VITALS: BP 124/83
--- NOTE | 2020-04-03 10:38 | Progress Note ---
Standard Progress Note Progress Notes/Assess & Plan Date Seen by a Provider: Apr 03, 2020 Time Seen by a Provider: 10:36 Progress/Assessment & Plan This patient is without complaint. She is ambulating, voiding, tolerating oral intake well and has good pain control. Patient is requesting discharge home. Vital Signs 04/03/20 04/03/20 03:05 08:47 Temp 36.4 Pulse 71 Resp 16 B/P (MAP) 105/55 (72) Pulse Ox 98 O2 Delivery Room Air Vital signs are stable. Patient is afebrile. Fundus is firm below the umbilicus this and nontender. Extremities show no clubbing or cyanosis. There is no Homans' sign. Assessment and plan post day #1 status post term spontaneous vaginal delivery doing well. Plan is for discharge home with follow-up in clinic Final Diagnosis 37-week spontaneous vaginal delivery RITA MUNOZ MD Apr 03, 2020 10:37
[2020-04-03 12:00] VITALS: BP 108/63
[2020-04-03] MEDS: oxyCODONE/APAP 5/325MG (PERCOCET 5) TABLET PO PRN ×3 (12:07→21:17)
[2020-04-03 16:25] VITALS: BP 106/53
--- NOTE | 2020-04-03 16:39 | Anesthesia-Regional Post-Op ---
Regional Patient Condition Mental Status: Alert, Oriented x3 Circulation: Same as Pre-Op Headache: Absent Sensation: Full Recovery Motor Block: Absent Post Op Complications Complications None Follow Up Care/Instructions Patient Instructions None needed. Anesthesia/Patient Condition Patient is doing well, no complaints, stable vital signs, no apparent adverse anesthesia problems. RUBEN DOZIER DO Apr 03, 2020 16:39
[2020-04-03 20:00] VITALS: BP 109/61
--- NOTE | 2020-04-03 20:00 | NUR ---
Introduced self to patient, discussed POC. Pt verbalized understanding. VS taken, assessment performed. Pt denies any complaints. Discharge instructions reviewed. Pt denied any questions. Signature sheet signed, placed on chart.
== END 2020-04-03 21:32 | disposition home or self-care (01) | DRG 807 ==
LOC: LDRP 09:19
PROVIDERS: ADMIT Obstetrics & Gynecology; ATTEND Obstetrics & Gynecology
PROC: 0KQM0ZZ Repair Perineum Muscle, Open Approach (ICD-10-PCS; principal; 2020-04-02)
PROC: 10E0XZZ Delivery of Products of Conception, External Approach (ICD-10-PCS; 2020-04-02)
DX: O70.1 Second degree perineal laceration during delivery (principal); Z37.0 Single live birth; Z3A.37 37 weeks gestation of pregnancy
CPT/HCPCS: 36415; 80053; 85025; 86850; 86900; 86901; 87635

== ENCOUNTER 2021-04-17 19:29 | Inpatient (IN) | payer MEDICAID ==
[~2021-04-17] VITALS: Ht 160 cm; Wt 75.7 kg
[2021-04-17] VITALS (7 sets, daily range): BP systolic 111–140; BP diastolic 60–81
[~2021-04-17 19:29] MED LIST changes: -OXYC-471 PO; +OXYC1TAB11 PO; +OXYC1TAB87 PO
[2021-04-17 19:46] LABS: CLARITY,URINE CLEAR; COLOR,URINE YELLOW; GLUCOSE, URINE (UA) NEGATIVE (NEGATIVE); KETONES,URINE 3+ (NEGATIVE); LEUKOCYTE ESTERASE ,URINE NEGATIVE (NEGATIVE); NITRITE,URINE NEGATIVE (NEGATIVE); PROTEIN,URINE TRACE (NEGATIVE)
[2021-04-17 19:55] LABS: BACTERIA,URINE MODERATE /HPF; BILIRUBIN,URINE 1+ (NEGATIVE); RBC,URINE 0-2 /HPF; SQUAMOUS EPITHELIAL CELL,UR 0-2 /HPF
[2021-04-17] MEDS ORDERED: LACTATED RINGERS 1,000 ML IV SCH (20:15)
[2021-04-17 21:18] LABS: BASOPHILS % (AUTO) 0 % (0-10); EOSINOPHILS % (AUTO) 0 % (0-10); HEMATOCRIT 37 % (35-52); HEMOGLOBIN 11.5 g/dL (11.5-16.0); LYMPHOCYTES # (AUTO) 0.9 10^3/uL (1.0-4.0); LYMPHOCYTES % (AUTO) 8 % (12-44); MEAN CORPUSCULAR HEMOGLOBIN 26 pg (25-34); MEAN CORPUSCULAR HGB CONC 31 g/dL (32-36); MEAN CORPUSCULAR VOLUME 84 fL (80-99); MEAN PLATELET VOLUME 9.4 fL (9.0-12.2); MONOCYTES # (AUTO) 0.4 10^3/uL (0.0-1.0); MONOCYTES % (AUTO) 4 % (0-12); NEUTROPHILS % (AUTO) 87 % (42-75); PLATELET COUNT 377 10^3/uL (130-400); WHITE BLOOD COUNT 11.5 10^3/uL (4.3-11.0)
[2021-04-17] MEDS ORDERED: ACETAMINOPHEN 500 MG TAB (TYLENOL) ONE (21:33)
[2021-04-17] MEDS ORDERED: LACTATED RINGERS 1,000 ML IV ONE (21:33)
[2021-04-17] MEDS: LACTATED RINGERS 1,000 ML IV SCH (21:38)
[2021-04-17 21:40] LABS: LYMPHOCYTES % (MANUAL) 9 %; MONOCYTES % (MANUAL) 5 %; NEUTROPHILS % (MANUAL) 86 %
[2021-04-17 21:41] LABS: RBC MORPH NORMAL
[2021-04-17 21:43] LABS: CALCIUM 9.3 MG/DL (8.5-10.1); CREATININE SERUM 0.72 MG/DL (0.60-1.30); POTASSIUM 3.6 MMOL/L (3.6-5.0); TOTAL PROTEIN 8.7 GM/DL (6.4-8.2); URIC ACID 3.9 MG/DL (2.6-7.2)
[2021-04-17] MEDS ORDERED: ACETAMINOPHEN 500 MG TAB (TYLENOL) PO ONE (21:45)
[2021-04-17] MEDS ORDERED: TERBUTALINE INJ 1 MG/ML (BRETHINE) AMP ONE (21:55)
[2021-04-17] MEDS ORDERED: TERBUTALINE INJ 1 MG/ML (BRETHINE) AMP SC ONE (22:00)
[2021-04-17] MEDS ORDERED: MINERAL OIL CONCENTRATE 99.9% 15 ML UDC TOP PRN (23:45)
[2021-04-17] MEDS ORDERED: AMPICILLIN FOR IV USE 2,000 MG in NS (IVPB) 50 ML IV SCH (23:45)
[2021-04-18] VITALS (63 sets, daily range): BP systolic 70–131; BP diastolic 28–77
[2021-04-18] MEDS ORDERED: fentaNYL INJ 100 MCG/2 ML AMP IVP PRN
[2021-04-18] MEDS ORDERED: fentaNYL INJ 100 MCG/2 ML AMP ONE ×2 (00:01→02:48)
[2021-04-18] MEDS: D5 LR IV SOLUTION 1,000 ML IV SCH ×4 (00:15→19:37)
[2021-04-18] MEDS: LACTATED RINGERS 1,000 ML IV SCH ×5 (02:15→19:37)
[2021-04-18] MEDS ORDERED: fentaNYL 2 mcg/ml BUPIVA 0.125 100 ML ONE (02:21)
[2021-04-18] MEDS ORDERED: BUPIVACAINE 0.25% 30 ML (SENSORCAINE) VIAL ONE (02:48)
[2021-04-18] MEDS: EPIDURAL (fentaNYL 2 MCG/ML BUPIVA 0.125%)100 ML BAG EPI PRN ×2 (03:07→10:43)
[2021-04-18] MEDS ORDERED: ONDANSETRON 4 MG/2 ML (SDV) Z0FRAN ONE (03:19)
[2021-04-18] MEDS ORDERED: NALOXONE 0.4 MG/ML 1 ML (NARCAN) VIAL IV PRN ×3 (03:45→11:45)
[2021-04-18] MEDS ORDERED: METOCLOPRAMIDE INJ 10 MG/2 ML (REGLAN) IV PRN (03:45)
[2021-04-18] MEDS ORDERED: ONDANSETRON 4 MG/2 ML (SDV) Z0FRAN IV PRN (03:45)
[2021-04-18] MEDS ORDERED: diphenhydrAMINE 50 MG/ML INJ (BENADRYL) IV PRN (03:45)
[2021-04-18] MEDS: AMPICILLIN FOR IV USE 1,000 MG in NS (IVPB) 50 ML IV SCH ×2 (04:00→07:51)
[2021-04-18] MEDS ORDERED: CATHETER FLUSH 10 ML SYR IV SCH ×2 (06:00→14:00)
[2021-04-18] MEDS ORDERED: OXYTOCIN PRE-MIX DRIP 500 ML IV ONE (07:44)
--- NOTE | 2021-04-18 08:54 | History & Physical-OB ---
OB - Chief Complaint & HPI Date/Time Date of Admission: Date of Admission: Apr 17, 2021 at 23:45 Date seen by a Provider: Apr 18, 2021 Time Seen by a Provider: 08:45 Chief Complaint/History OB-Reason for Admission/Chief: Labor Hx : 3 Hx Para: 2 Expected Date of Delivery: Apr 11, 2022 Gestational Age in Weeks: 36 Gestational Age in Days: 4 Admission Nurse Assessment Rev: Yes History of Labs A pos Antibody neg RI RPR NR HBsAg NR HIV NR GC neg GBS neg Allergies and Home Medications Allergies Coded Allergies: shellfish derived (Verified Allergy, Severe, hives, 07/18/17) Patient Home Medication List Home Medication List Reviewed: Yes Docusate Sodium (Colace) 100 Mg Capsule, 100 MG PO BID Prescribed by: RITA HORNE on 04/02/20 1244 Ibuprofen (Ibuprofen) 800 Mg Tablet, 800 MG PO Q6H PRN for PAIN Prescribed by: RITA HORNE on 04/02/20 1244 Oxycodone HCl/Acetaminophen (Percocet 5-325 mg Tablet) 1 Each Tablet, 1 TAB PO Q4H Prescribed by: RITA HORNE on 04/02/20 1244 Icw556/FA/Omega3/Dha/Fish Oil ( Gummies) 1 Each Tab.chew, 1 EACH PO DAILY, (Reported) Entered as Reported by: KERON PERRY on 03/29/20 1553 OB - History Hx of Present Care: Yes Ultrasounds: Normal mid trimester US Obstetrical Complications: None Medical Complications: None Obstetrical History Hx : 3 Hx Para: 2 Hx Total # of Abortions (Spona: 0 Patient Past Medical History n/a Social History/Family History Alcohol Use: Denies Use Recreational Drug Use: No 2nd Hand Smoke Exposure: No Immunizations Influenza Vaccine Up-to-Date: No; Not Current Hepatitis A: Yes Hepatitis B: Yes OB - Admission Exam Physical Exam Vitals: Vital Signs 04/18/21 04/18/21 03:00 07:00 Temp 36.5 Pulse 74 Resp 20 B/P (MAP) 100/61 (74) Pulse Ox 100 O2 Delivery Room Air HEENT: NCAT Heart: Rhythm Normal Lungs: Clear Abdomen: Gravid Extremities: Normal Reflexes: Normal Cervical Dilatation: 7cm Effacement: 75% Station: -1 Membranes: Intact Heart Rate: 130's Accelerations: Accelerations Present Decelerations: No Decelerations Short Term Variability: Present Title Attorney Variability: Average (6-25) Contractions on Admission: < 5 Minutes Apart Intensity: Firm Labs Laboratory Tests Test 04/17/21 19:40 04/17/21 20:55 Range/Units Urine Color YELLOW Urine Clarity CLEAR Urine pH 6.0 5-9 Urine Specific [place] >=1.030 1.016-1.022 Urine Protein 22 H 6-12 MG/DL Urine Glucose (UA) NEGATIVE NEGATIVE Urine Ketones 3+ H NEGATIVE Urine Nitrite NEGATIVE NEGATIVE Urine Bilirubin 1+ H NEGATIVE Urine Urobilinogen 0.2 < = 1.0 MG/DL Urine Leukocyte Esterase NEGATIVE NEGATIVE Urine RBC (Auto) NEGATIVE NEGATIVE Urine RBC 0-2 /HPF Urine WBC 2-5 /HPF Urine Squamous Epithelial Cells 0-2 /HPF Urine Renal Epithelial Cells NONE /HPF Urine Crystals NONE /LPF Urine Bacteria MODERATE H /HPF Urine Casts NONE /LPF Urine Mucus MODERATE H /LPF Urine Culture Indicated YES Urine Creatinine 164 H 30-125 MG/DL Urine Protein/Creatinine Ratio 0.13 White Blood Count 11.5 H 4.3-11.0 10^3/uL Red Blood Count 4.48 3.80-5.11 10^6/uL Hemoglobin 11.5 11.5-16.0 g/dL Hematocrit 37 35-52 % Mean Corpuscular Volume 84 80-99 fL Mean Corpuscular Hemoglobin 26 25-34 pg Mean Corpuscular Hemoglobin Concent 31 L 32-36 g/dL Red Cell Distribution Width 14.0 10.0-14.5 % Platelet Count 377 130-400 10^3/uL Mean Platelet Volume 9.4 9.0-12.2 fL Immature Granulocyte % (Auto) 0 % Neutrophils (%) (Auto) 87 H 42-75 % Lymphocytes (%) (Auto) 8 L 12-44 % Monocytes (%) (Auto) 4 0-12 % Eosinophils (%) (Auto) 0 0-10 % Basophils (%) (Auto) 0 0-10 % Neutrophils # (Auto) 10.0 H 1.8-7.8 10^3/uL Lymphocytes # (Auto) 0.9 L 1.0-4.0 10^3/uL Monocytes # (Auto) 0.4 0.0-1.0 10^3/uL Eosinophils # (Auto) 0.0 0.0-0.3 10^3/uL Basophils # (Auto) 0.0 0.0-0.1 10^3/uL Immature Granulocyte # (Auto) 0.1 0.0-0.1 10^3/uL Neutrophils % (Manual) 86 % Lymphocytes % (Manual) 9 % Monocytes % (Manual) 5 % Blood Morphology Comment NORMAL Sodium Level 137 135-145 MMOL/L Potassium Level 3.6 3.6-5.0 MMOL/L Chloride Level 105 98-107 MMOL/L Carbon Dioxide Level 16 L 21-32 MMOL/L Anion Gap 16 H 5-14 MMOL/L Blood Urea Nitrogen 9 7-18 MG/DL Creatinine 0.72 0.60-1.30 MG/DL Estimat Glomerular Filtration Rate 118 BUN/Creatinine Ratio 13 Glucose Level 76 70-105 MG/DL Uric Acid 3.9 2.6-7.2 MG/DL Calcium Level 9.3 8.5-10.1 MG/DL Corrected Calcium 9.3 8.5-10.1 MG/DL Total Bilirubin 1.0 0.1-1.0 MG/DL Aspartate Amino Transf (AST/SGOT) 20 5-34 U/L Alanine Aminotransferase (ALT/SGPT) 12 0-55 U/L Alkaline Phosphatase 175 H 40-136 U/L Lactate Dehydrogenase 226 H 125-220 U/L Total Protein 8.7 H 6.4-8.2 GM/DL Albumin 4.0 3.2-4.5 GM/DL OB - Assessment/Plan/Diagnosis Assessment Assessment: active labor, labor Admission Dx 25 yo @ 36.4 labor GBS neg Admission Status: Inpatient Order (span 2 midnights) Reason for Inpatient Admission: labor at 36 weeks Plan Plan: Expectant Management ACOSTA VELAZCO DO Apr 18, 2021 08:54
[2021-04-18] MEDS: OXYTOCIN PRE-MIX DRIP 500 ML IV SCH ×2 (11:24→11:58)
--- NOTE | 2021-04-18 11:40 | OB Labor & Delivery Record ---
L&D History Date of Service Date of Service: Apr 18, 2021 History Expected Date of Delivery: Apr 11, 2022 Gestational Age in Weeks: 36 Hx : 3 Hx Para: 2 Complications Events: Routine care Operative Indications (Cesarea: N/A-Vaginal Delivery Intrapartal Events: None L&D Stage1 Stage One Onset of Labor - Date: Apr 18, 2021 Monitors and Tracing Monitor Mode: External Heart Rate: 135 Monitor Decelerations: None Station: -2 Detention Variability: Average (6-10) Short Term Variability: Present Presentation: Vertex Vital Signs VS - Last 72 Hours, by Label 04/17/21 04/17/21 04/17/21 04/17/21 19:46 19:46 19:50 20:05 Temp 36.2 36.2 36.2 Pulse 134 134 134 126 Resp 20 B/P (MAP) 140/81 (100) 123/73 (90) Pulse Ox 99 99 99 100 O2 Delivery Room Air Room Air Room Air Room Air 04/17/21 04/17/21 04/17/21 04/17/21 20:20 20:50 21:25 22:00 Temp 37.2 Pulse 114 97 95 101 Resp 20 20 20 20 B/P (MAP) 126/79 (95) 116/78 (91) 111/60 (77) 116/70 (85) Pulse Ox 100 O2 Delivery Room Air Room Air Room Air Room Air 04/18/21 04/18/21 04/18/21 04/18/21 00:00 01:00 02:00 02:55 Temp 37.1 36.5 36.5 Pulse 103 104 104 94 Resp 20 20 20 20 B/P (MAP) 118/56 (76) 118/60 (79) 100/56 (71) 122/57 (78) Pulse Ox 98 O2 Delivery Room Air Room Air Room Air Room Air 04/18/21 04/18/21 04/18/21 04/18/21 02:58 03:00 03:01 03:04 Temp 36.5 Pulse 101 86 101 98 Resp 20 20 20 20 B/P (MAP) 114/63 (80) 108/63 (78) 117/65 (82) 131/70 (90) Pulse Ox 100 100 100 O2 Delivery Room Air Room Air Room Air Room Air 04/18/21 04/18/21 04/18/21 04/18/21 03:08 03:10 03:13 03:15 Pulse 107 107 62 59 Resp 20 20 20 20 B/P (MAP) 114/59 (77) 89/47 (61) 70/28 (42) 89/53 (65) Pulse Ox 100 100 99 100 O2 Delivery Room Air Room Air Room Air Room Air 04/18/21 04/18/21 04/18/21 04/18/21 03:18 03:20 03:22 03:25 Pulse 64 68 67 77 Resp 20 20 20 20 B/P (MAP) 76/35 (49) 104/61 (75) 111/65 (80) 112/63 (79) Pulse Ox 100 99 99 99 O2 Delivery Room Air Room Air Room Air Room Air 04/18/21 04/18/21 04/18/21 04/18/21 03:28 03:30 03:31 03:34 Pulse 77 88 88 108 Resp 20 20 20 20 B/P (MAP) 120/62 (81) 115/57 (76) 115/57 (76) 114/56 (75) Pulse Ox 100 100 100 99 O2 Delivery Room Air Room Air Room Air Room Air 04/18/21 04/18/21 04/18/21 04/18/21 03:37 03:40 03:43 03:45 Pulse 117 107 97 97 Resp 20 20 20 20 B/P (MAP) 115/59 (77) 104/57 (73) 110/60 (77) 110/60 (77) Pulse Ox 98 98 98 99 O2 Delivery Room Air Room Air Room Air Room Air 04/18/21 04/18/21 04/18/21 04/18/21 03:46 03:49 03:53 03:55 Pulse 94 83 85 93 Resp 20 20 20 20 B/P (MAP) 115/64 (81) 111/66 (81) 112/68 (83) 110/70 (83) Pulse Ox 100 100 100 100 O2 Delivery Room Air Room Air Room Air Room Air 04/18/21 04/18/21 04/18/21 04/18/21 04:00 04:15 04:30 04:45 Pulse 93 86 88 95 Resp 20 20 20 20 B/P (MAP) 110/70 (83) 108/63 (78) 98/58 (71) 97/58 (71) Pulse Ox 99 99 100 100 O2 Delivery Room Air Room Air Room Air Room Air 04/18/21 04/18/21 04/18/21 04/18/21 05:00 05:15 05:30 05:45 Pulse 98 69 64 74 Resp 20 20 20 20 B/P (MAP) 103/66 (78) 96/51 (66) 97/57 (70) 99/56 (70) Pulse Ox 100 100 100 100 O2 Delivery Room Air Room Air Room Air Room Air 04/18/21 04/18/21 04/18/21 04/18/21 06:00 06:15 06:30 06:45 Pulse 77 103 75 69 Resp 20 20 20 20 B/P (MAP) 100/61 (74) 102/69 (80) 100/62 (75) 100/60 (73) Pulse Ox 100 99 99 99 O2 Delivery Room Air Room Air Room Air Room Air 04/18/21 04/18/21 04/18/21 04/18/21 07:00 07:15 07:30 07:45 Temp 35.9 Pulse 74 83 87 80 Resp 20 18 18 18 B/P (MAP) 100/61 (74) 107/63 (78) 107/57 (74) 111/57 (75) Pulse Ox 100 100 100 100 O2 Delivery Room Air Room Air Room Air Room Air 04/18/21 04/18/21 04/18/21 04/18/21 08:00 08:15 08:30 08:45 Pulse 87 115 81 102 Resp 18 18 18 18 B/P (MAP) 98/58 (71) 101/58 (72) 95/50 (65) Pulse Ox 100 100 100 100 O2 Delivery Room Air Room Air Room Air Room Air 04/18/21 04/18/21 04/18/21 04/18/21 09:00 09:15 09:30 09:45 Pulse 76 54 91 85 Resp 18 18 18 18 B/P (MAP) 97/56 (70) 103/69 (80) 117/53 (74) Pulse Ox 100 100 100 100 O2 Delivery Room Air Room Air Room Air Room Air Rupture of Membranes Spontaneous Ruture of Membrane: No Amniotic Membrane Rupture Time: 0834 Amniotic Membrane Fluid Desc.: Clear Vaginal Bleeding Description: Normal Show Induction/Anesthesia Epidural Cath Placement - Time: 0301 Progress/Notes Patient admitted for PTL last night by Dr. Hilario. Upon evaluation this AM was 6-7 cm AROM performed. She progressed to complete and +2 station with 2 mu pitocin augmentation. L&D Stage2 Stage Two Stage II Date: Apr 18, 2021 Monitors and Tracing Monitor Mode: External Heart Rate: 135 Monitor Decelerations: None Position: Right Occiput Anterior Presentation: Vertex Cord Descript/Complications Cord Vessel Description: 3 Vessels Complications nuchal cord reduced x 1 Delivery Type Infant Delivery Method: Spontaneous Vaginal Anterior Shoulder: Right Episiotomy/Perineal Laceration Laceraction(s)/Extensions: Yes Episiotomy Description: Vaginal Extension/lac, 1st degree Degree (describe repair) 1st degree vaginal laceration repaired using 3-0 rapide in usual fashion Condition of Delivery Notes Live female weight 6lbs 5oz APGARs pending. to CPAP and then blow by O2 . Condition of Condition of : Living Exam: No Observed Abnormalities Resuscitation Resuscitation: Oxygen Blowby L&D Stage3 Stage Three Stage III Date: Apr 18, 2021 Pictocin Pitocin Administration Comment: 30 mu wide open after delivery of placenta Placenta Delivery Placenta Delivery: Spontaneous Delivery Summary Summary Estimated blood loss (mL): 300 Attending at delivery: Acosta Velazco DO Condition of Delivery Examined: Cervix Examined, Uterus Explored Post Hemorrhage: No Condition of Mother stable Condition of (s) stable ACOSTA VELAZCO DO Apr 18, 2021 11:40
[2021-04-18] MEDS ORDERED: TETANUS,DIPTH,PERTUSS P/F (BOOSTRIX) 0.5 ML VIAL IM ONE (11:45)
[2021-04-18] MEDS ORDERED: DIBUCAINE 1% OINTMENT 30 GM TUBE TOP PRN (11:45)
[2021-04-18] MEDS ORDERED: MEASLES,MUMPS,RUBELLA 1 EA INJ SQ ONE (11:45)
[2021-04-18] MEDS ORDERED: BENZOCAINE/MENTHOL (DERMOPLAST) 56 ML CAN TP PRN (11:45)
[2021-04-18] MEDS ORDERED: HYDROcodone/APAP 5 MG/325 MG (LORTAB) TAB PO PRN (11:45)
[2021-04-18] MEDS ORDERED: WITCH HAZEL(TUCKS) 40 EA JAR TOP PRN (11:45)
[2021-04-18] MEDS: IBUPROFEN 600 MG (MOTRIN) TAB PO SCH ×3 (13:34→23:20)
[2021-04-18] MEDS ORDERED: oxyCODONE/APAP 5/325MG (PERCOCET 5) TABLET PO PRN (14:30)
[2021-04-18] MEDS: oxyCODONE/APAP 5/325MG (PERCOCET 5) TABLET PO PRN ×2 (15:30→21:38)
[2021-04-18] MEDS: DOCUSATE SODIUM 100 MG (COLACE) CAP PO SCH (20:02)
[2021-04-19 00:12] VITALS: BP 112/62
[2021-04-19] MEDS: oxyCODONE/APAP 5/325MG (PERCOCET 5) TABLET PO PRN ×2 (03:56→10:56)
[2021-04-19 04:00] VITALS: BP 106/58
[2021-04-19] MEDS: IBUPROFEN 600 MG (MOTRIN) TAB PO SCH ×2 (05:11→12:21)
[2021-04-19 06:11] LABS: BASOPHILS # (AUTO) 0.1 10^3/uL (0.0-0.1); BASOPHILS % (AUTO) 1 % (0-10); EOSINOPHILS # (AUTO) 0.2 10^3/uL (0.0-0.3); EOSINOPHILS % (AUTO) 2 % (0-10); HEMATOCRIT 26 % (35-52); HEMOGLOBIN 8.1 g/dL (11.5-16.0); LYMPHOCYTES # (AUTO) 2.7 10^3/uL (1.0-4.0); LYMPHOCYTES % (AUTO) 24 % (12-44); MEAN CORPUSCULAR HGB CONC 32 g/dL (32-36); MEAN CORPUSCULAR VOLUME 84 fL (80-99); MEAN PLATELET VOLUME 9.8 fL (9.0-12.2); MONOCYTES # (AUTO) 0.9 10^3/uL (0.0-1.0); MONOCYTES % (AUTO) 8 % (0-12); NEUTROPHILS # (AUTO) 7.2 10^3/uL (1.8-7.8); NEUTROPHILS % (AUTO) 65 % (42-75); PLATELET COUNT 288 10^3/uL (130-400)
[2021-04-19 06:12] LABS: MEAN CORPUSCULAR HEMOGLOBIN 26 pg (25-34)
[2021-04-19] MEDS ORDERED: PRENATAL VITAMIN 1 EA TAB PO SCH (07:00)
--- NOTE | 2021-04-19 07:29 | Postpartum Progress Note ---
SUGEY BRITO 04/19/21 0729: Note Note Day # 1 Subjective: Patient is without complaints. Ambulating, voiding. Patient has passed flatus, has not had a bowel movement. Tolerating a regular diet without nausea or vomiting. Normal lochia. Pain is well controlled with oral pain medications. Patient is without concerns. Objective: Vital signs stable, afebrile Physical Exam: General - Alert and oriented, no apparent distress Abdomen - Soft, mildly tender to palpation, non-distended, fundus firm at umbilicus Extremities - Mild bilateral lower extremity edema Assessment: G3 now P3 post- day # 1, status post normal spontaneous vaginal delivery. Recovering well, hemodynamically stable Plan: Routine care. Encourage breast feeding. Encourage ambulation. Ferrous sulfate supplementation. Plan for discharge today Vitals - Labs Vital Signs - I&O Vital Signs Date Time Temp Pulse Resp B/P (MAP) Pulse Ox O2 Delivery O2 Flow Rate FiO2 04/19/21 04:00 36.6 78 18 106/58 (74) 98 Room Air 04/19/21 00:12 36.8 82 20 112/62 (79) 99 Room Air 04/18/21 20:04 37.0 77 18 108/57 (74) 98 Room Air 04/18/21 17:00 36.9 75 18 97/53 (68) 99 Room Air 04/18/21 13:57 37.3 99 18 120/59 (79) 100 Room Air 04/18/21 13:25 90 18 117/71 (86) Room Air 04/18/21 13:10 96 18 124/77 (93) Room Air 04/18/21 12:55 81 18 103/57 (72) Room Air 04/18/21 12:40 88 18 107/58 (74) Room Air 04/18/21 12:25 103 18 124/60 (81) Room Air 04/18/21 12:10 97 18 112/53 (72) Room Air 04/18/21 11:00 18 Room Air 04/18/21 10:45 107 18 106/52 (70) Room Air 04/18/21 10:30 80 18 105/55 (72) Room Air 04/18/21 10:15 82 18 122/59 (80) 100 Room Air 04/18/21 10:00 91 18 111/60 (77) 100 Room Air 04/18/21 09:45 85 18 117/53 (74) 100 Room Air 04/18/21 09:30 91 18 100 Room Air 04/18/21 09:15 54 18 103/69 (80) 100 Room Air 04/18/21 09:00 76 18 97/56 (70) 100 Room Air 04/18/21 08:45 102 18 95/50 (65) 100 Room Air 04/18/21 08:30 81 18 101/58 (72) 100 Room Air 04/18/21 08:15 115 18 98/58 (71) 100 Room Air 04/18/21 08:00 87 18 100 Room Air 04/18/21 07:45 80 18 111/57 (75) 100 Room Air 04/18/21 07:30 35.9 87 18 107/57 (74) 100 Room Air I & O 04/19/21 07:00 Intake Total 2050 ml Balance 2050 ml Labs Laboratory Tests 04/19/21 06:01: White Blood Count 11.0, Red Blood Count 3.06L, Hemoglobin 8.1#L, Hematocrit 26L, Mean Corpuscular Volume 84, Mean Corpuscular Hemoglobin 26, Mean Corpuscular Hemoglobin Concent 32, Red Cell Distribution Width 14.2, Platelet Count 288, Mean Platelet Volume 9.8, Immature Granulocyte % (Auto) 1, Neutrophils (%) (Auto) 65, Lymphocytes (%) (Auto) 24, Monocytes (%) (Auto) 8, Eosinophils (%) (Auto) 2, Basophils (%) (Auto) 1, Neutrophils # (Auto) 7.2, Lymphocytes # (Auto) 2.7, Monocytes # (Auto) 0.9, Eosinophils # (Auto) 0.2, Basophils # (Auto) 0.1, Immature Granulocyte # (Auto) 0.1 KAYLIE COELHO [employer] 04/19/21 1003: Note Note Assessment in agreement w/medical student's findings SUGEY BRITO Apr 19, 2021 07:29 KAYLIE COELHO APRN Apr 19, 2021 10:03
[2021-04-19 07:50] VITALS: BP 98/55
[2021-04-19] MEDS ORDERED: FERROUS SULF 325 MG (IRON) TAB PO SCH (09:00)
[2021-04-19] MEDS: DOCUSATE SODIUM 100 MG (COLACE) CAP PO SCH (09:09)
[2021-04-19 12:15] VITALS: BP 107/55
--- NOTE | 2021-04-19 15:46 | Discharge Inst-Women's Service ---
Discharge Inst-Women's Serv Depart Medication/Instructions New, Converted or Re-Newed RX: Transmitted to Pharmacy Final Diagnosis PPD 1 NVD Problems Reviewed?: Yes Consults/Follow Up Additional Follow Up: Yes Orders/Referrals Dr. Velazco in 6 weeks Activity Activity: Activity as Tolerated Driving Instructions: No Driving for 1 Week NO SMOKING: NO SMOKING Nothing Inside Vagina: No Douching, No [place], No Tampons Diet Discharge Diet: No Restrictions Symptoms to Report to : Bleeding Excessive, Pain Increased, Fever Over 101 Degrees F, Vaginal Bleeding Increase, Questions/Concerns For Any Problems or Questions: Contact Your Physician ACOSTA VELAZCO DO Apr 19, 2021 3:46 pm
[2021-04-19] MEDS ORDERED: OXYC1TAB87 PO (15:47)
[2021-04-19] MEDS ORDERED: IBUP-844 PO (15:47)
[2021-04-19] MEDS ORDERED: DIBU30OI TOP (15:47)
[2021-04-19] MEDS ORDERED: BENZ78AE5 TP (15:47)
[2021-04-19] MEDS ORDERED: DOCU100C37 PO (15:47)
[2021-04-19 16:00] VITALS: BP 108/59
== END 2021-04-19 16:15 | disposition home or self-care (01) | DRG 807 ==
LOC: LDRP 19:29 → WSo 19:29 → LDRP 23:45
PROVIDERS: ADMIT Family Medicine; ATTEND Obstetrics & Gynecology
PROC: 10E0XZZ Delivery of Products of Conception, External Approach (ICD-10-PCS; principal; 2021-04-18)
PROC: 0HQ9XZZ Repair Perineum Skin, External Approach (ICD-10-PCS; 2021-04-18)
DX: O60.14X0 Preterm labor third trimester with preterm delivery third trimester, not applicable or unspecified (principal); Z37.0 Single live birth; O70.0 First degree perineal laceration during delivery; O69.81X0 Labor and delivery complicated by cord around neck, without compression, not applicable or unspecified; Z3A.36 36 weeks gestation of pregnancy; Z91.013 Allergy to seafood
CPT/HCPCS: 36415; 80053; 81000; 82570; 83615; 84156; 84550; 85007; 85025; 85027; 86850; 86900; 86901; 87088; 99212

== ENCOUNTER 2022-02-01 16:55 | Emergency (ER) | payer MEDICAID ==
[~2022-02-01] VITALS: Ht 162 cm; Wt 65.0 kg
[~2022-02-01 16:55] MED LIST changes: +BENZ78AE5 TP; +DIBU30OI TOP; +DOCU100C37 PO; +IBUP-844 PO
[2022-02-01 17:23] LABS: ALBUMIN 4.8 GM/DL (3.2-4.5); BASOPHILS # (AUTO) 0.1 10^3/uL (0.0-0.1); BASOPHILS % (AUTO) 1 % (0-10); CHLORIDE 101 MMOL/L (98-107); EOSINOPHILS # (AUTO) 0.2 10^3/uL (0.0-0.3); EOSINOPHILS % (AUTO) 3 % (0-10); HEMATOCRIT 40 % (35-52); HEMOGLOBIN 13.4 g/dL (11.5-16.0); LYMPHOCYTES % (AUTO) 45 % (12-44); MEAN CORPUSCULAR HEMOGLOBIN 29 pg (25-34); MEAN CORPUSCULAR HGB CONC 33 g/dL (32-36); MEAN CORPUSCULAR VOLUME 88 fL (80-99); MEAN PLATELET VOLUME 9.4 fL (9.0-12.2); MONOCYTES # (AUTO) 0.6 10^3/uL (0.0-1.0); MONOCYTES % (AUTO) 7 % (0-12); NEUTROPHILS # (AUTO) 3.9 10^3/uL (1.8-7.8); NEUTROPHILS % (AUTO) 45 % (42-75); PLATELET COUNT 464 10^3/uL (130-400); POTASSIUM 3.2 MMOL/L (3.6-5.0); SODIUM 134 MMOL/L (135-145); WHITE BLOOD COUNT 8.8 10^3/uL (4.3-11.0)
[2022-02-01 17:24] LABS: CALCIUM 9.9 MG/DL (8.5-10.1)
[2022-02-01 17:25] LABS: GLUCOSE 91 MG/DL (70-105); TOTAL PROTEIN 8.6 GM/DL (6.4-8.2)
[2022-02-01 17:26] LABS: CARBON DIOXIDE 20 MMOL/L (21-32)
[2022-02-01 17:27] LABS: BILIRUBIN,TOTAL 0.4 MG/DL (0.1-1.0)
[2022-02-01 17:29] LABS: ALKALINE PHOSPHATASE 70 U/L (40-136); CREATININE SERUM 0.85 MG/DL (0.60-1.30); GFR ESTIMATED 96
[2022-02-01 17:30] LABS: BUN/CREATININE RATIO 22
[2022-02-01 17:32] LABS: ALANINE AMINOTRANSFERASE 17 U/L (0-55)
--- NOTE | 2022-02-01 17:43 | Diagnostic Imaging Report ---
PROCEDURE: CT head without contrast. TECHNIQUE: Multiple contiguous axial images were obtained through the brain without the use of intravenous contrast. Auto Exposure Controls were utilized during the CT exam to meet ALARA standards for radiation dose reduction. INDICATION: Dizziness. FINDINGS: There is no intracranial hemorrhage, hydrocephalus, cerebral edema, mass, mass effect nor evidence for elevated intracranial pressures. Basilar cisterns patent. There is no sulcal effacement. The orbits, sinuses, and calvarium appeared nonacute. IMPRESSION: Unremarkable CT head Dictated by: Dictated on workstation # [id number]
[2022-02-01 18:02] LABS: AMPHETAMINE SCREEN, URINE NEGATIVE (NEGATIVE); BARBITURATE SCREEN URINE NEGATIVE (NEGATIVE); BENZODIAZEPINES SCREEN URINE NEGATIVE (NEGATIVE); CANNABINOID SCREEN, URINE NEGATIVE (NEGATIVE); COCAINE SCREEN URINE NEGATIVE (NEGATIVE); HCG,QUALITATIVE URINE NEGATIVE (NEGATIVE); METHADONE STAT NEGATIVE (NEGATIVE); OPIATE SCREEN URINE NEGATIVE (NEGATIVE); OXYCODONE STAT NEGATIVE (NEGATIVE); PROPOXYPHENE STAT NEGATIVE (NEGATIVE); TRICYCLIC ANTIDEPRESSANTS SCRE NEGATIVE (NEGATIVE)
[2022-02-01] MEDS ORDERED: KETOROLAC 30 MG/ML VIAL IVP ONE (18:15)
[2022-02-01] MEDS ORDERED: diphenhydrAMINE 50 MG/ML INJ (BENADRYL) IVP ONE (18:15)
[2022-02-01] MEDS ORDERED: PROCHLORPERAZINE 10 MG/2ML INJ (COMPAZINE) IV ONE (18:15)
--- NOTE | 2022-02-01 18:56 | ED Headache ---
General Chief Complaint: Head/Cervical Problems Stated Complaint: NUMBNESS/TINGLING ARMS AND LEGS Nursing Triage Note: ARRIVED VIA WITH COMPLAINTS OF A SEVERE HEADACHE THAT STARTED AT 1300. AT 1600 SHE STARTED HAVING RINGING IN HER EARS AND FELT LIKE SHE WAS GOING TO PASS OUT. Source: patient Exam Limitations: no limitations History of Present Illness Date Seen by Provider: Feb 01, 2022 Time Seen by Provider: 17:03 Initial Comments Patient is a 26-year-old female who presents to the emergency department for evaluation of cute onset of headache and vertiginous symptoms earlier today. 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 She had some nausea and one episode of emesis at that time. She states that symptoms seem to spontaneously resolve but they recurred particularly with any sudden position change. Denies any shortness of air, chest pain, vision loss, focal numbness/weakness. She states she does have general weakness and general tingling in her arms and legs. Denies any history of similar symptomology. Denies any recent drug or alcohol use. No recent head trauma. States she felt like she was going to pass out at 1 point but did not fully lose consciousness. Allergies and Home Medications Allergies Coded Allergies: shellfish derived (Verified Allergy, Severe, hives, 07/18/17) Patient Home Medication List Home Medication List Reviewed: Yes Benzocaine/Menthol (Dermoplast Pain Relieving [place]) 78 Gm Aerosol, 0 EA TP UD PRN for PAIN- SEE INSTRUCTIONS Prescribed by: ACOSTA VELAZCO on 04/19/211546 Dibucaine (Dibucaine) 30 Gm Oint, 0 GM TOP UD PRN for PAIN- SEE INSTRUCTIONS Prescribed by: ACOSTA VELAZCO on 04/19/211546 Docusate Sodium (Docusate Sodium) 100 Mg Capsule, 100 MG PO BID PRN for CONSTIPATION-1ST LINE Prescribed by: ACOSTA VELAZCO on 04/19/211546 Ibuprofen (Ibu) 600 Mg Tablet, 600 MG PO Q6HR Prescribed by: ACOSTA VELAZCO on 04/19/211546 Oxycodone HCl/Acetaminophen (Percocet 5-325 mg Tablet) 1 Each Tablet, 1 TAB PO Q6HR PRN for PAIN-MODERATE (5-7) Prescribed by: ACOSTA VELAZCO on 04/19/21 154 Hhd905/FA/Omega3/Dha/Fish Oil ( Gummies) 1 Each Tab.chew, 1 EACH PO DAILY, (Reported) Entered as Reported by: KERON PERRY on 03/29/20 1553 Review of Systems Review of Systems Constitutional: dizziness Eyes: No Symptoms Reported Ears, Nose, Mouth, Throat: no symptoms reported Respiratory: no symptoms reported Cardiovascular: see HPI Gastrointestinal: no symptoms reported Genitourinary: no symptoms reported Musculoskeletal: no symptoms reported Past Qqckleb-Phcpda-Ibczgt Hx Patient Social History Tobacco Use?: No Substance use?: No Alcohol Use?: No Seasonal Allergies Seasonal Allergies: No Past Medical History Surgeries: Yes (2007-nose reconstruction) Respiratory: No Cardiac: No Neurological: No Genitourinary: No Gastrointestinal: No Musculoskeletal: No Endocrine: No HEENT: Yes (nose reconstruction ) Cancer: No Psychosocial: No Integumentary: No Blood Disorders: No Family Medical History Hypertension (father) Physical Exam Vital Signs Vital Signs - First Documented 02/01/22 16:55 Temp 36.0 Pulse 96 Resp 16 B/P (MAP) 139/90 (106) Pulse Ox 100 O2 Delivery Room Air Capillary Refill : Less Than 3 Seconds Height, Weight, BMI Height: 5'4.00" Weight: 172lbs. 0.0oz. 78.292763vo; 24.00 BMI Method: General Appearance: WD/WN, no apparent distress HEENT: PERRL/EOMI, normal ENT inspection, TMs normal, pharynx normal Neck: non-tender, full range of motion, supple, normal inspection Cardiovascular: regular rate, rhythm Respiratory: chest non-tender, lungs clear, normal breath sounds, no respiratory distress, no accessory muscle use Gastrointestinal: normal bowel sounds, non tender, soft Back: normal inspection, no vertebral tenderness Extremities: normal range of motion, non-tender, normal inspection Skin: normal color, warm/dry Progress/Results/Core Measures Results/Orders Lab Results Laboratory Tests Test 02/01/22 17:00 02/01/22 17:26 Range/Units White Blood Count 8.8 4.3-11.0 10^3/uL Red Blood Count 4.56 3.80-5.11 10^6/uL Hemoglobin 13.4 11.5-16.0 g/dL Hematocrit 40 35-52 % Mean Corpuscular Volume 88 80-99 fL Mean Corpuscular Hemoglobin 29 25-34 pg Mean Corpuscular Hemoglobin Concent 33 32-36 g/dL Red Cell Distribution Width 12.8 10.0-14.5 % Platelet Count 464 H 130-400 10^3/uL Mean Platelet Volume 9.4 9.0-12.2 fL Immature Granulocyte % (Auto) 0 % Neutrophils (%) (Auto) 45 42-75 % Lymphocytes (%) (Auto) 45 H 12-44 % Monocytes (%) (Auto) 7 0-12 % Eosinophils (%) (Auto) 3 0-10 % Basophils (%) (Auto) 1 0-10 % Neutrophils # (Auto) 3.9 1.8-7.8 10^3/uL Lymphocytes # (Auto) 4.0 1.0-4.0 10^3/uL Monocytes # (Auto) 0.6 0.0-1.0 10^3/uL Eosinophils # (Auto) 0.2 0.0-0.3 10^3/uL Basophils # (Auto) 0.1 0.0-0.1 10^3/uL Immature Granulocyte # (Auto) 0.0 0.0-0.1 10^3/uL Sodium Level 134 L 135-145 MMOL/L Potassium Level 3.2 L 3.6-5.0 MMOL/L Chloride Level 101 98-107 MMOL/L Carbon Dioxide Level 20 L 21-32 MMOL/L Anion Gap 13 5-14 MMOL/L Blood Urea Nitrogen 19 H 7-18 MG/DL Creatinine 0.85 0.60-1.30 MG/DL Estimat Glomerular Filtration Rate 96 BUN/Creatinine Ratio 22 Glucose Level 91 70-105 MG/DL Calcium Level 9.9 8.5-10.1 MG/DL Corrected Calcium 8.5-10.1 MG/DL Total Bilirubin 0.4 0.1-1.0 MG/DL Aspartate Amino Transf (AST/SGOT) 17 5-34 U/L Alanine Aminotransferase (ALT/SGPT) 17 0-55 U/L Alkaline Phosphatase 70 40-136 U/L Troponin I < 0.028 <0.028 NG/ML Total Protein 8.6 H 6.4-8.2 GM/DL Albumin 4.8 H 3.2-4.5 GM/DL Urine Test NEGATIVE NEGATIVE Urine Opiates Screen NEGATIVE NEGATIVE Urine Oxycodone Screen NEGATIVE NEGATIVE Urine Methadone Screen NEGATIVE NEGATIVE Urine Propoxyphene Screen NEGATIVE NEGATIVE Urine Barbiturates Screen NEGATIVE NEGATIVE Ur Tricyclic Antidepressants Screen NEGATIVE NEGATIVE Urine Phencyclidine Screen NEGATIVE NEGATIVE Urine Amphetamines Screen NEGATIVE NEGATIVE Urine Methamphetamines Screen NEGATIVE NEGATIVE Urine Benzodiazepines Screen NEGATIVE NEGATIVE Urine Cocaine Screen NEGATIVE NEGATIVE Urine Cannabinoids Screen NEGATIVE NEGATIVE My Orders Orders - MARISA MORENO APRN Ekg Tracing (02/01/22 17:01) Cbc With Automated Diff (02/01/22 17:13) Comprehensive Metabolic Panel (02/01/22 17:13) Hcg,Qualitative Urine (02/01/22 17:13) Drug Screen Stat (Urine) (02/01/22 17:13) Ct Head Wo (02/01/22 17:13) Troponin I Radha (02/01/22 17:13) Iv/Invasive Line Insertion .IV INSERT (02/01/22 17:13) Prochlorperazine Injection (Compazine In (02/01/22 18:15) Diphenhydramine Injection (Benadryl Inje (02/01/22 18:15) Ketorolac Injection (Toradol Injection) (02/01/22 18:15) Medications Given in ED Vital Signs/I&O 02/01/22 02/01/22 16:55 19:32 Temp 36.0 36.5 Pulse 96 72 Resp 16 18 B/P (MAP) 139/90 (106) 114/65 Pulse Ox 100 99 O2 Delivery Room Air Room Air Blood Pressure Mean: 106 Progress Progress Note : Progress Note Patient is nontoxic and well-hydrated on exam. No focal neurologic deficits appreciated. Patient was able to ambulate to the room without issue. She does appear very anxious and is hyperventilating. Vital signs are overall very reassuring. Laboratory evaluation is unremarkable. Family kept requesting a CT of the patient's head. I stated this was not indicated with the lack of focal neurologic deficits. They persisted in their desire for the head CT and this was ordered. This was acutely negative. EKG without acute ischemic change or arrhythmia. Patient persisted in her report of headache. She was given migraine cocktail consisting of Compazine, Benadryl, and ketorolac. Patient is currently breast-feeding and was told that these medications are very low risk of causing any detriment to the child but out of an abundance of caution she could pump and dump once. Patient had near resolution of the headache after these medicines. BPV is a possible etiology of the symptoms given acute onset and worsening with certain movements. Patient has no marked cerebellar dysfunction as nose to finger and [id number] are intact. Patient demonstrated no ataxia ambulating while in the department. Offered meclizine for symptom control but they declined. Encouraged him to closely follow-up with PCP. Return precautions for urgent symptomology discussed. Patient verbalized understanding. EKG : EKG Time: 17:03 Rate: 94 Rhythm: Normal Sinus Intervals: Normal ECG Impression: Normal Departure Impression Primary Impression: Vertigo Additional Impression: Headache Qualified Codes: R51.9 - Headache, unspecified Disposition: 01 HOME, SELF-CARE Condition: Stable Departure-Patient Inst. Decision time for Depature: 19:10 Referrals: RITA MUNOZ MD (PCP/Family) Primary Care Physician Patient Instructions: Headache, Adult (DC), Vertigo (a Type of Dizziness) (DC) MARISA MORENO APRN Feb 01, 2022 18:56
[2022-02-01 19:32] VITALS: BP 114/65
== END 2022-02-01 19:36 | disposition home or self-care (01) ==
LOC: EDUNIT# 16:55 → ER 16:56
DX: R42 Dizziness and giddiness (principal); R51.9 Headache, unspecified; R06.4 Hyperventilation; Z28.310 Unvaccinated for COVID-19
CPT/HCPCS: 36415; 70450; 80053; 80306; 84484; 84703; 85025; 93005

== ENCOUNTER → 2022-08-18 | Outpatient (CLI) | payer MEDICAID ==
--- NOTE | 2022-08-18 16:12 | Diagnostic Imaging Report ---
INDICATION: Right lower quadrant abdominal pain. PROCEDURE: Ultrasound abdomen complete. TECHNIQUE: Multiple real-time grayscale images were obtained of the abdomen in various projections. FINDINGS: The liver is normal in size at 16 cm. Portal vein is patent and shows normal direction of flow. No liver mass is detected. Gallbladder is without stones or sludge. There is no wall thickening or biliary ductal dilatation. Pancreas is unremarkable. Spleen measures 10.8 cm. Aorta is nonaneurysmal. IVC is patent. Kidneys are without calculi or hydronephrosis. There is no ascites. IMPRESSION: Unremarkable abdominal ultrasound. Dictated by: Dictated on workstation # [id number]
--- NOTE | 2022-08-18 16:13 | Diagnostic Imaging Report ---
PROCEDURE: Pelvic comp/transvaginal sonogram. TECHNIQUE: Complete transabdominal and transvaginal pelvic ultrasound was performed. In addition, limited pelvic Doppler was performed. INDICATION: Acute pelvic pain. FINDINGS: Uterus measures 8.4 x 5.3 x 5.8 cm. Endometrium measures 16 mm in thickness. There is an area of heterogeneity anteriorly measuring 4.6 x 2.0 cm. This may represent a fibroid. Right ovary measures 4.0 x 2.2 x 2.1 cm, and the left ovary measures 3.0 x 2.1 x 1.8 cm. Right ovary contains a probable hemorrhagic cyst, approximately 2.6 cm in size. There is blood flow to the ovaries. Minimal free fluid is noted. IMPRESSION: 1. Probable uterine fibroid. 2. Probable 2.6 cm right ovarian cyst. Dictated by: Dictated on workstation # [id number]
== END ==
LOC: RAD 14:16
PROVIDERS: ATTEND Nurse Practitioner Women's Health
DX: R10.30 Lower abdominal pain, unspecified (principal)
CPT/HCPCS: 76700; 76830; 76856

== ENCOUNTER → 2022-08-29 | Outpatient (CLI) | payer MEDICAID ==
[~2022-08-29] MED LIST changes: +CATHETER FLUSH 10 ML SYR IVP PRN
--- NOTE | 2022-08-29 14:05 | Diagnostic Imaging Report ---
INDICATION: Right upper quadrant pain. EXAMINATION: HIDA scan 08/29/2022 FINDINGS: After uneventful administration of 5.49 mCi of technetium 99m Choletec intravenously subsequent imaging is performed. There is prompt homogeneous uptake throughout the liver. Gallbladder and small bowel seen within 60 minutes. Subsequent administration of ensure administered orally with continued imaging performed. Ejection fraction is calculated at 82%. IMPRESSION: 1. No obstructive process. 2. Normal ejection fraction. Dictated by: Dictated on workstation # [id number]
== END ==
LOC: RAD 07:36
PROVIDERS: ATTEND Surgery
DX: R10.11 Right upper quadrant pain (principal); R11.2 Nausea with vomiting, unspecified
CPT/HCPCS: 78227; A9537

== ENCOUNTER → 2022-08-29 | Outpatient (CLI) | payer MEDICAID ==
[~2022-08-29] MED LIST changes: -CATHETER FLUSH 10 ML SYR IVP PRN
== END ==
LOC: RAD 07:18
PROVIDERS: ATTEND Nurse Practitioner Women's Health
DX: R10.2 Pelvic and perineal pain (principal); R10.30 Lower abdominal pain, unspecified

== ENCOUNTER → 2022-09-07 | Outpatient (CLI) | payer MEDICAID | END | disposition home or self-care (01) | LOC: PREOP 07:49 | PROVIDERS: ATTEND Surgery | DX: Z01.818 Encounter for other preprocedural examination (principal) ==